=== PATIENT | female | born 1980 | race Caucasian/White ===

== ENCOUNTER 2016-11-24 20:47 | Emergency (ER) | payer OTHER ==
[~2016-11-24] VITALS: Ht 170.2 cm; Wt 91.8 kg
[~2016-11-24 20:47] MED LIST: CIPRO500 MG; DILAUDID2 MG PO; FLAGYL500 MG; IBUPROFEN800 MG PO; RANITIDINE HCL150 MG; VITAMIN D400 UNI2; XANAX0.5 MG PO
[2016-11-24] MEDS ORDERED: MOTRIN800 MG PO (21:43)
[2016-11-24] MEDS ORDERED: ROBITUSSIN100 MG/5 M PO (21:43)
[2016-11-24] MEDS ORDERED: ATARAX,VISTARIL50 MG PO (21:43)
[2016-11-24 21:52] VITALS: BP 150/110
== END 2016-11-24 21:53 | disposition home or self-care (01) ==
LOC: EME 20:47
DX: F41.9 Anxiety disorder, unspecified (principal); S40.012A Contusion of left shoulder, initial encounter; W51.XXXA Accidental striking against or bumped into by another person, initial encounter; J42 Unspecified chronic bronchitis
CPT/HCPCS: 71020; 73030; 99281; 99284

== ENCOUNTER 2018-01-29 12:24 | Emergency (ER) | payer OTHER ==
[~2018-01-29] VITALS: Ht 170.2 cm; Wt 91.1 kg
[~2018-01-29 12:24] MED LIST changes: +ATARAX,VISTARIL50 MG PO; +MOTRIN800 MG PO; +ROBITUSSIN100 MG/5 M PO
[2018-01-29 12:57] LABS: HEMATOCRIT 43.1 % (36.0-46.0); HEMOGLOBIN 14.7 G/DL (11.9-15.5); MCH 30.5 PG (29.0-34.0); MCHC 34.1 G/DL (30.0-36.0); MCV 89.4 FL (83-99); PLATELET COUNT 222 K/uL (156-360); RBC DIS.WIDTH-CV 12.9 % (11.8-14.6); RBC DIS.WIDTH-SD 42.3 % (39-53); RED BLOOD COUNT 4.82 M/uL (3.80-5.20); WHITE BLOOD COUNT 6.4 K/uL (4.1-10.2)
[2018-01-29 13:25] LABS: CHLORIDE 105 MEQ/L (99-109); CREATININE 0.7 MG/DL (0.6-1.3); GFR ESTIMATE (CALCULATED) > 59 mL/min/; GLUCOSE 98 mg/dL (70-99); SODIUM 141 MEQ/L (136-147); UREA NITROGEN (BUN) 7 mg/dL (9-23)
[2018-01-29] MEDS ORDERED: ZITHROMAX250 MG PO (13:55)
[2018-01-29 15:07] VITALS: BP 124/97
== END 2018-01-29 15:08 | disposition home or self-care (01) ==
LOC: EME 12:24
DX: J18.9 Pneumonia, unspecified organism (principal); M79.7 Fibromyalgia; Z88.5 Allergy status to narcotic agent; Z88.6 Allergy status to analgesic agent; Z88.8 Allergy status to other drugs, medicaments and biological substances
CPT/HCPCS: 71046; 80048; 85027; 99281; 99284; J0696